=== PATIENT | female | born 1950 | race Caucasian/White ===

== ENCOUNTER 2025-02-19 00:15 | Emergency (ER) | payer MEDICARE ==
[2025-02-19 01:04] LABS: Hematocrit 44.0 % (36.0-47.0); Hemoglobin 15.0 g/dL (12.0-16.0); MDiff Complete? YES; Mean Corpuscular Hemoglobin 28.3 pg (27.0-31.0); Mean Corpuscular Volume 83.2 fl (78.0-98.0); Platelet Adequacy Comment Appears Adequate; Platelet Count 219 10x3/uL (130-400); Red Blood Cell (RBC) Count 5.29 mill/uL (4.20-5.40); White Blood Cell (WBC) Count 16.2 10x3/uL (4.8-10.8)
[2025-02-19 05:32] LABS: Anion Gap 18 mmol/L (10-20); BUN (Urea Nitrogen) 22 mg/dL (9.8-20.1); Calc. Creatinine Clearance 0 mL/min (70-130); Carbon Dioxide 23 mmol/L (23-31); Chloride 105 mmol/L (98-107); Potassium 3.2 mmol/L (3.5-5.1); Sodium 143 mmol/L (136-145)
[2025-02-19 05:33] LABS: ALT (SGPT) 34 U/L (Less than 34); AST (SGOT) 31 U/L (11-34); Albumin 4.0 g/dL (3.1-4.5); Alkaline Phosphatase 86 U/L (40-110); Bilirubin, Total 0.2 mg/dL (0.3-1.2); Calcium 8.6 mg/dL (7.8-10.44); Globulin 3.4 g/dL (2.4-3.5); Glucose 215 mg/dL (83-110); Troponin I Less than 0.010 ng/mL (< 0.028)
[2025-02-19 06:20] LABS: CAUTI Indications for Culture Alt mental st,lethar; Glucose, Urine (Dipstick) Negative (Negative); Leukocyte Negative (Negative); Protein, Urine (Dipstick) 30 mg/dL (Neg-Trace); RBC/HPF None Seen HPF (0-3); Specific Gravity, Urine 1.020 (1.005-1.030); WBC/HPF 0-3 HPF (0-3)
[2025-02-19 06:21] LABS: Bacteria/HPF Rare-Few HPF (None Seen); Urine Culture Reflex No No
== END 2025-02-19 02:30 ==
LOC: BURERS 00:15
DX: J18.9 Pneumonia, unspecified organism (principal); R09.02 Hypoxemia
CPT/HCPCS: 71045; 80053; 81001; 83605; 83880; 84484; 85025; 85379; 87040; 87428; 93005; 94760; 96365; J0295